=== PATIENT | female | born 1965 | race Caucasian/White ===

== ENCOUNTER 2016-10-29 10:56 | Emergency (ER) | payer OTHER ==
[2016-10-29 11:06] VITALS: TEMP 97.5
--- NOTE | 2016-10-29 11:15 | ED ---
General Adult HPI - General Chief complaint: Extremity Injury, Lower Stated complaint: Rt Ankle Swelling Time Seen by Provider: 10/29/16 11:00 Source: patient, RN notes reviewed Mode of arrival: wheelchair Limitations: physical limitation - History of Present Illness Initial comments: This is a 51-year-old female who presents emergency department stating that she twisted her ankle yesterday and now it is extremely swollen and sore and she can 't walk on it. Patient states she's had previous injury to that ankle but is definitely bigger and more tender than it normally is. Patient denies any foot pain or toe pain patient denies any knee pain. Patient denies any other injury at this time. - Related Data Home Medications Medication Instructions Recorded Confirmed Acetaminophen-Codeine 300-30mg 1 tab PO DIRECTED PRN 02/22/16 02/23/16 [Tylenol w/codeine #3] Previous Rx's Medication Instructions Recorded Doxycycline Hyclate 100 mg PO BID #10 tab 02/23/16 HYDROcodone/APAP 7.5-325MG [[place] 1 - 2 tab PO Q6HR PRN #60 tab 02/23/16 7.5-325] Hydrocodone/Acetaminophen [[place] 1 each PO Q4HR PRN #20 tab 10/29/16 5-325] Ibuprofen [Motrin] 600 mg PO Q6HR PRN #20 tab 10/29/16 Allergies Allergy/AdvReac Type Severity Reaction Status Date / Time No Known Allergies Allergy Verified 10/29/16 11:05 Review of Systems ROS Statement: Those systems with pertinent positive or pertinent negative responses have been documented in the HPI. ROS Other: All systems not noted in ROS Statement are negative. Past Medical History Past Medical History: No Reported History Additional Past Medical History / Comment(s): FX LEFT CLAVICLE, HAS SLING History of Any Multi-Drug Resistant Organisms: None Reported Past Surgical History: Cholecystectomy, Orthopedic Surgery Additional Past Surgical History / Comment(s): left clavicle Past Anesthesia/Blood Transfusion Reactions: No Reported Reaction Past Psychological History: No Psychological Hx Reported Smoking Status: Current every day smoker Past Alcohol Use History: Occasional Past Drug Use History: None Reported - Past Family History Mother Family Medical History: Cancer Additional Family Medical History / Comment(s): BREAST General Exam - General Exam Comments Initial Comments: GENERAL Patient is well-developed and well-nourished. Patient is in mild distress. EYES Patient's pupils are equal and round. Extraocular motion is intact SKIN Unremarkable NEURO The patient is alert and oriented 3 PYSCH Patient has normal interpersonal interactions. MUSCULOSKELETAL Patient's right ankle is swollen and tender to palpation both medial and lateral malleolus. Limitations: physical limitation Course Vital Signs 10/29/16 11:02 Temperature 97.5 F L Pulse Rate 141 H Respiratory 18 Rate Blood Pressure 157/100 O2 Sat by Pulse 100 Oximetry Procedures - Orthopedic Splinting/Casting Injury #1 Side: right Lower Extremity Injury Location: ankle Lower Extremity Immobilizer: posterior splint (This is a short leg splint) Medical Decision Making - Medical Decision Making Patient's x-ray shows a minimally displaced non-comminuted fracture of the medial malleolus. Patient should follow-up with orthopedic surgery as soon as possible. Disposition Clinical Impression: Fracture of ankle, medial malleolus, closed Disposition: HOME SELF-CARE Condition: Good Instructions: Ankle Fracture (ED) Prescriptions: Hydrocodone/Acetaminophen [[place] 5-325] 1 each PO Q4HR PRN #20 tab PRN Reason: Pain Ibuprofen [Motrin] 600 mg PO Q6HR PRN #20 tab PRN Reason: For pain Referrals: None,Stated [Primary Care Provider] - 1-2 days Time of Disposition: 12:06
--- NOTE | 2016-10-29 11:31 | XR ---
EXAMINATION TYPE: XR ankle complete LT DATE OF EXAM: 10/29/2016 CLINICAL HISTORY: Left ankle pain after twisting injury TECHNIQUE: Frontal, lateral and oblique images of the left ankle are obtained. COMPARISON: None. FINDINGS: There is generalized soft tissue swelling about the ankle joint, medial greater than latera l overlying a transversely oriented noncomminuted fracture of the medial malleolus with approximately 4 mm of anterior displacement. This extends into the ankle joint although the ankle joint space is m aintained. Small Achilles appears per is noted. Osseous mineralization is within normal limits. No ra diopaque foreign body IMPRESSION: Minimally displaced, noncomminuted transversely oriented medial malleolar fracture extend ing into the ankle joint without joint space widening.
[2016-10-29 12:24] VITALS: BP 111/81; PULSE 110; RESP 20
== END 2016-10-29 12:24 | disposition home or self-care (01) ==
LOC: EC 10:56
DX: S82.51XA Displaced fracture of medial malleolus of right tibia, initial encounter for closed fracture (principal); F17.200 Nicotine dependence, unspecified, uncomplicated; X50.1XXA Overexertion from prolonged static or awkward postures, initial encounter; Y93.89 Activity, other specified
CPT/HCPCS: 29515; 99283

== ENCOUNTER 2017-03-27 17:27 | Emergency (ER) | payer OTHER ==
[2017-03-27 17:36] VITALS: TEMP 97.8
--- NOTE | 2017-03-27 17:43 | ED ---
General Adult HPI - General Chief complaint: Extremity Injury, Upper Stated complaint: POSS FINGER DISLOCATION RT MIDDLE FINGER Time Seen by Provider: 03/27/17 17:36 Source: patient, RN notes reviewed Mode of arrival: ambulatory Limitations: no limitations - History of Present Illness Initial comments: 51-year-old female presents for fall on the ice with right finger pain. She states that she is unable to bend it now. Patient states that she did not lose consciousness he does not hit her head. Patient was concerned due to her pain so she thought that she should be evaluated. Patient denies any recent fever, chills, shortness of breath, chest pain, back pain, abdominal pain, nausea vomiting, numbness or tingling, dysuria or hematuria, constipation or diarrhea, headaches or visual changes, or any other current symptoms. - Related Data Home Medications Medication Instructions Recorded Confirmed No Known Home Medications [No 03/27/17 03/27/17 Known Home Medications] Allergies Allergy/AdvReac Type Severity Reaction Status Date / Time No Known Allergies Allergy Verified 03/27/17 18:34 Review of Systems ROS Statement: Those systems with pertinent positive or pertinent negative responses have been documented in the HPI. ROS Other: All systems not noted in ROS Statement are negative. Past Medical History Past Medical History: No Reported History Additional Past Medical History / Comment(s): FX LEFT CLAVICLE, HAS SLING History of Any Multi-Drug Resistant Organisms: None Reported Past Surgical History: Cholecystectomy, Orthopedic Surgery Additional Past Surgical History / Comment(s): left clavicle Past Anesthesia/Blood Transfusion Reactions: No Reported Reaction Past Psychological History: No Psychological Hx Reported Smoking Status: Current every day smoker Past Alcohol Use History: Occasional Past Drug Use History: None Reported - Past Family History Mother Family Medical History: Cancer Additional Family Medical History / Comment(s): BREAST General Exam - General Exam Comments Initial Comments: General: The patient is awake and alert, in no distress, and does not appear acutely ill. Neck: The neck is supple, there is no tenderness or JVD. Cardiovascular: There is a regular rate and rhythm. No murmur, rub or gallop is appreciated. Respiratory: Lungs are clear to auscultation, respirations are non-labored, breath sounds are equal. No wheezes, stridor, rales, or rhonchi. Musculoskeletal: Sensation intact with 2+ pulses. Extremity. Fund motion of right wrist. Full range of motion of right hand besides right middle finger that does appear to be an obvious deformity. No laceration no skin abrasion. Neurological: CN II-XII intact, There are no obvious motor or sensory deficits. Coordination appears grossly intact. Speech is normal. Skin: Skin is warm and dry and no rashes or lesions are noted. Psychiatric: Normal mood and affect. Limitations: no limitations Course Vital Signs 03/27/17 17:34 Temperature 97.8 F Pulse Rate 102 H Respiratory 20 Rate Blood Pressure 139/80 O2 Sat by Pulse 99 Oximetry Procedures - Orthopedic Joint Reduction Joint #1 Consent Obtained: verbal consent Time Out Performed: Yes Side: right Joint Reduction Location: finger Analgesia: none Shoulder Technique Used (if applicable): traction/counter-traction Post-Reduction Neuro Exam: intact Post-Reduction Vascular Exam: intact Post Reduction X-Ray Obtained: Yes Post Reduction X-Ray Results: reduced Splint Applied: Yes Patient Tolerated Procedure: well - Orthopedic Splinting/Casting Injury #1 Side: right Upper Extremity Injury Location: finger Upper Extremity Immobilizer: aluminum form splint Medical Decision Making - Medical Decision Making 51-year-old female presents emergency Department chief complaint of right middle finger injury. At this time patient will undergo an x-ray. This time x- ray does show a right middle finger dislocation. This was reduced. We did place wrist splint. We discussed follow-up return parameters. They state Santos all cushions have been answered. They'll be discharged. - Radiology Data Radiology results: report reviewed, image reviewed Disposition Clinical Impression: Closed dislocation of right middle finger Disposition: HOME SELF-CARE Condition: Stable Instructions: Finger Dislocation (ED) Additional Instructions: Please use medication as discussed. Please follow up with family doctor if symptoms have not improved over the next two days. Please return to the emergency room if your symptoms increase or worsen or for any other concerns. Referrals: Lambert Carias DO [Primary Care Provider] - 1-2 days Time of Disposition: 18:46
--- NOTE | 2017-03-27 18:38 | XR ---
PROCEDURE: XR finger RT 3 views DATE AND TIME: 03/27/2017 5:50 PM REFERRING PHYSICIAN: Tina Mcguire CLINICAL INDICATION: PHH, Pain TECHNIQUE: Department protocol. COMPARISON: None FINDINGS: There is no fracture but there is dorsal dislocation at the third PIP, with 5 mm override. No other findings. IMPRESSION: Dislocation at the third PIP.
--- NOTE | 2017-03-27 18:45 | XR ---
PROCEDURE: XR finger RT 3 views DATE AND TIME: 03/27/2017 6:20 PM REFERRING PHYSICIAN: Tina Mcguire CLINICAL INDICATION: PHH, Pain TECHNIQUE: Department protocol. COMPARISON: Same day radiographs obtained at 5:51 PM. FINDINGS: These 3 views show interval reduction at the third PIP articulation. There is no fracture. No other findings. IMPRESSION: Interval reduction.
[2017-03-27 18:51] VITALS: BP 134/76; PULSE 88; RESP 18
== END 2017-03-27 18:50 | disposition home or self-care (01) ==
LOC: EC 17:27
DX: S63.252A Unspecified dislocation of right middle finger, initial encounter (principal); F17.200 Nicotine dependence, unspecified, uncomplicated; W00.9XXA Unspecified fall due to ice and snow, initial encounter; Y92.89 Other specified places as the place of occurrence of the external cause
CPT/HCPCS: 26770; 99283

== ENCOUNTER → 2017-09-23 | Outpatient (CLI) | payer BC ==
--- NOTE | 2017-09-23 11:24 | XR ---
EXAMINATION TYPE: XR lumbosacral spine min 4V DATE OF EXAM: 09/23/2017 COMPARISON: NONE HISTORY: 51-year-old female low back pain and lumbago TECHNIQUE: 5 views FINDINGS: 5 lumbar type vertebral bodies. Cholecystectomy clips. No pars interarticularis defect. Mild endplate spondylosis throughout with mild disc interspace narrowing at L5-S1. Facet arthropathy mid to lower lumbar spine with trace grade 1 retrolisthesis at L3-L4 and L4-L5. Vertebral body heights are maintai carmen. IMPRESSION: 1. Mild multilevel degenerative disc disease. 2. Facet arthropathy mid to lower lumbar spine with trace grade 1 retrolisthesis at L3-L4 and L4-L5. 3. No vertebral compression collapse.
== END | disposition home or self-care (01) ==
LOC: RADXRYALE 09:36
PROVIDERS: ATTEND Physician Assistant Medical
DX: M51.37 Other intervertebral disc degeneration, lumbosacral region (principal); M48.8X6 Other specified spondylopathies, lumbar region
CPT/HCPCS: 72110

== ENCOUNTER 2018-02-19 06:38 | Emergency (ER) | payer BC ==
[2018-02-19] MEDS ORDERED: IPRATROPIUM-ALBUTEROL 3 ML NEB INHALATION STA (06:55)
--- NOTE | 2018-02-19 07:06 | XR ---
EXAMINATION TYPE: XR chest 2V DATE OF EXAM: 02/19/2018 COMPARISON: 02/23/2016 HISTORY: Chest pain TECHNIQUE: Frontal and lateral views of the chest are obtained. FINDINGS: Heart and mediastinum are normal. Lungs are clear of consolidation. There is slight blunti ng of the left costophrenic angle. There is plate fixing old left clavicle fracture. There are no hil ar masses. Thoracic spine is intact. IMPRESSION: There is new small left pleural effusion or pleural scarring compared to old exam. Patricia l heart.
[2018-02-19 07:07] VITALS: RESP 18
[2018-02-19] MEDS ORDERED: IBUPROFEN 600 MG TAB PO STA (07:10)
--- NOTE | 2018-02-19 07:13 | ED ---
General Adult HPI - General Chief complaint: Upper Respiratory Infection Stated complaint: L Rib Pain Time Seen by Provider: 02/19/18 07:03 Source: patient, family, RN notes reviewed, old records reviewed Mode of arrival: ambulatory Limitations: no limitations - History of Present Illness Initial comments: 52-year-old female presenting for evaluation of cough and left-sided chest pain. Patient has had cough for the past 3 weeks. She is a current smoker. She states that she was sick with cough URI symptoms several weeks ago, this has come and gone over the past several weeks. Denies fever or chills. She reports a mild sore throat which she attributes to her cough. No rhinorrhea. Cough is nonproductive. Yesterday she developed some left-sided chest pain while coughing. She states she felt a popping sensation in her left upper chest and his had pain in this area as well. No dysuria. No fever or chills. No central radiating chest pain. Sharp, worse with movement. - Related Data Previous Rx's Medication Instructions Recorded Ibuprofen [Motrin] 600 mg PO Q8HR PRN #24 tab 02/19/18 Allergies Allergy/AdvReac Type Severity Reaction Status Date / Time No Known Allergies Allergy Verified 02/19/18 07:10 Review of Systems ROS Statement: Those systems with pertinent positive or pertinent negative responses have been documented in the HPI. ROS Other: All systems not noted in ROS Statement are negative. Past Medical History Past Medical History: No Reported History Additional Past Medical History / Comment(s): FX LEFT CLAVICLE, HAS SLING History of Any Multi-Drug Resistant Organisms: None Reported Past Surgical History: Cholecystectomy, Orthopedic Surgery Additional Past Surgical History / Comment(s): left clavicle Past Anesthesia/Blood Transfusion Reactions: No Reported Reaction Past Psychological History: No Psychological Hx Reported Smoking Status: Current every day smoker Past Alcohol Use History: Occasional Past Drug Use History: None Reported - Past Family History Mother Family Medical History: Cancer Additional Family Medical History / Comment(s): BREAST General Exam Limitations: no limitations General appearance: alert, in no apparent distress Head exam: Present: atraumatic, normocephalic Eye exam: Present: normal appearance, PERRL ENT exam: Present: normal exam Neck exam: Present: normal inspection. Absent: tenderness, meningismus Respiratory exam: Present: normal lung sounds bilaterally, chest wall tenderness (Left lateral chest wall tenderness, no deformity, there is some upper anterior chest wall tenderness as well just below the clavicle.). Absent : respiratory distress, wheezes, rales, rhonchi Cardiovascular Exam: Present: regular rate, normal rhythm GI/Abdominal exam: Present: soft. Absent: distended, tenderness Extremities exam: Present: normal inspection, normal capillary refill. Absent: pedal edema Neurological exam: Present: alert, oriented X3, CN II-XII intact. Absent: motor sensory deficit Psychiatric exam: Present: normal affect, normal mood Skin exam: Present: warm, dry, intact. Absent: cyanosis, diaphoretic Course Vital Signs 02/19/18 02/19/18 02/19/18 06:39 07:02 07:22 Temperature 98.9 F Pulse Rate 109 H 98 Respiratory 20 18 18 Rate Blood Pressure 160/101 148/91 O2 Sat by Pulse 98 97 Oximetry Medical Decision Making - Medical Decision Making 52-year-old female presenting with left-sided rib pain after coughing. Patient' s symptoms began suddenly with cough. Cough is present 2-3 weeks. Patient has tenderness on exam. X-rays obtained, negative for displaced fracture. There is a small either left-sided pleural effusion or pleural scarring at the left lung base. No focal pneumonia. No pneumothorax. Patient is offered further workup in the emergency department, including blood work, and computed tomography scan her chest as well as EKG. She declines. She prefers to follow- up with her primary care physician. She will return with worsening or changing symptoms. Disposition Clinical Impression: Costochondritis, Chest pain Disposition: HOME SELF-CARE Condition: Good Instructions: Costochondritis (ED) Prescriptions: Ibuprofen [Motrin] 600 mg PO Q8HR PRN #24 tab PRN Reason: Pain Is patient prescribed a controlled substance at d/c from ED?: No Referrals: Lambert Carias DO [Primary Care Provider] - 1-2 days Time of Disposition: 07:46
[2018-02-19 07:22] VITALS: BP 148/91; PULSE 98
[2018-02-19 07:51] VITALS: TEMP 97.9
== END 2018-02-19 07:50 | disposition home or self-care (01) ==
LOC: EC 06:38
DX: M94.0 Chondrocostal junction syndrome [Tietze] (principal); R05 Cough; J02.9 Acute pharyngitis, unspecified; F17.200 Nicotine dependence, unspecified, uncomplicated; Z87.81 Personal history of (healed) traumatic fracture; Z98.890 Other specified postprocedural states
CPT/HCPCS: 71046; 99284